=== PATIENT | female | born 1945 | race Hispanic/Latino ===

== ENCOUNTER 2022-04-26 19:40 | Observation (INO) | payer OTHER, MEDICARE ==
[~2022-04-26] VITALS: Ht 157.5 cm; Wt 124.7 kg
[2022-04-26 20:29] LABS: BASOPHILS % (AUTO) 0.3 % (0.0-5.0); EOSINOPHILS % (AUTO) 0.4 % (0.0-8.0); HEMATOCRIT 34.8 % (36-48); LYMPHOCYTES % (AUTO) 16.7 % (21.0-51.0); MEAN CORPUSCULAR HEMOGLOBIN 28.9 pg (27.0-33.0); MEAN CORPUSCULAR HGB CONC 32.5 g/dL (32.0-36.0); MONOCYTES % (AUTO) 6.6 % (3.0-13.0); NEUTROPHILS % (AUTO) 75.4 % (40.0-77.0); PLATELET COUNT (AUTO) 237 K/uL (130-400); RED BLOOD CELL COUNT(AUTO) 3.91 MIL/uL (4.00-5.50); RED CELL DISTRIBUTION WIDTH 13.4 % (11.0-15.5); WHITE BLOOD COUNT (AUTO) 6.8 K/uL (4.8-10.8)
[2022-04-26 20:39] LABS: CREATININE 1.2 mg/dL (0.5-1.5); POTASSIUM 3.8 mmol/L (3.5-5.1)
[2022-04-26 20:42] LABS: PROTHROMBIN TIME 10.9 SEC (9.6-11.6)
[2022-04-26 20:43] LABS: PARTIAL THROMBOPLASTIN TIME 27.3 SEC (26.3-35.5)
[2022-04-26 20:44] LABS: ALBUMIN 3.5 g/dL (3.5-5.0); TOTAL PROTEIN, SERUM 8.1 g/dL (6.0-8.3)
[2022-04-26] MEDS ORDERED: FUROSEMIDE 40MG VIAL ONE (20:50)
[2022-04-26] MEDS ORDERED: AMLODIPINE 5 MG TAB ONE (20:50)
[2022-04-26] MEDS ORDERED: LOSARTAN 50 MG TABLET ONE (20:50)
[2022-04-26 20:57] LABS: B-TYPE NATRIURETIC PEPTIDE 16 pg/mL (0-100)
[2022-04-26] MEDS ORDERED: ACETAMINOPHEN 325 MG TAB PO PRN (21:00)
[2022-04-26] MEDS: FUROSEMIDE 40MG VIAL IVP SCH (21:00)
[2022-04-26] MEDS: METOPROLOL TARTRATE 25 MG TAB PO SCH (21:00)
[2022-04-26] MEDS ORDERED: METOPROLOL TARTRATE 25 MG TAB PO SCH (21:00)
[2022-04-26] MEDS ORDERED: GUAIFENESIN-DM 200/20 MG 10 ML PO PRN (21:00)
[2022-04-26] MEDS ORDERED: HYDRALAZINE 20MG/ML VIAL IV PRN (21:30)
[2022-04-26 22:30] VITALS: BP 145/73
[2022-04-26] MEDS ORDERED: LOSA50TA64 PO (23:43)
[2022-04-26] MEDS ORDERED: FERR325T29 PO (23:43)
[2022-04-26] MEDS ORDERED: GLIP10TA9 PO (23:43)
[2022-04-26] MEDS ORDERED: TERB250T89 PO (23:43)
[2022-04-26] MEDS ORDERED: PSYL0.5245 PO (23:48)
[2022-04-26] MEDS ORDERED: AMLO-258 PO (23:50)
[2022-04-26] MEDS ORDERED: ROSU20TA31 PO (23:50)
[2022-04-26] MEDS ORDERED: PANT20TA18 PO (23:52)
[2022-04-26] MEDS ORDERED: LORA10TA7 PO (23:52)
[2022-04-26] MEDS ORDERED: FURO20TA4 PO (23:52)
[2022-04-26] MEDS ORDERED: PIOG45TA64 PO (23:52)
[2022-04-26] MEDS ORDERED: ASPI-1443 PO (23:55)
[2022-04-26] MEDS ORDERED: DOCU100T PO (23:55)
[2022-04-27] MEDS ORDERED: POTASSIUM CHLORIDE 20MEQ/100ML 100 ML IV PRN (02:00)
[2022-04-27] MEDS ORDERED: KCL 20 MEQ ERTAB PO PRN (02:00)
[2022-04-27] MEDS ORDERED: POTASSIUM CHLORIDE 10% ELIXIR 20 MEQ/15 ML UDCUP PO PRN (02:00)
[2022-04-27] MEDS ORDERED: LIDOCAINE HCL-MPF 1% 2ML VIAL IV PRN (02:00)
[2022-04-27 04:17] VITALS: BP 120/56
[2022-04-27 04:57] LABS: CREATININE 1.1 mg/dL (0.5-1.5); POTASSIUM 3.7 mmol/L (3.5-5.1)
[2022-04-27] MEDS: INSULIN HUMULIN R 100 UNIT/ML 3ML SQ SCH ×4 (06:48→21:00)
[2022-04-27 07:32] VITALS: BP 117/67
[2022-04-27] MEDS ORDERED: AMLODIPINE 5 MG TAB PO SCH ×2 (09:00)
[2022-04-27] MEDS ORDERED: ENOXAPARIN SODIUM 40 MG/0.4 ML SYRINGE SQ SCH (09:00)
[2022-04-27] MEDS ORDERED: ENOXAPARIN SODIUM 30 MG/0.3 ML SQ SCH (09:00)
[2022-04-27] MEDS ORDERED: IOHEXOL-350 75 ML VIAL IV ONE (09:10)
[2022-04-27] MEDS: METOPROLOL TARTRATE 25 MG TAB PO SCH ×2 (09:47→20:53)
[2022-04-27] MEDS: LOSARTAN 100 MG TABLET PO SCH (09:48)
[2022-04-27] MEDS: KCL 20 MEQ ERTAB PO SCH ×2 (09:48→20:53)
[2022-04-27] MEDS: FUROSEMIDE 40MG VIAL IVP SCH ×2 (09:49→20:53)
[2022-04-27] MEDS: ENOXAPARIN SODIUM 120 MG/0.8ML SQ SCH (12:29)
[2022-04-27 12:57] VITALS: BP 130/60
[2022-04-27 16:32] VITALS: BP 155/63
[2022-04-27 20:00] VITALS: BP 145/64
[2022-04-27] MEDS ORDERED: TERBINAFINE HCL PO SCH (21:00)
[2022-04-27] MEDS ORDERED: ATORVASTATIN 40 MG TABLET PO SCH (21:00)
[2022-04-28] VITALS: BP 123/60
[2022-04-28 04:00] VITALS: BP 118/44
[2022-04-28 05:22] LABS: HEMATOCRIT 36.2 % (36-48); MEAN CORPUSCULAR HEMOGLOBIN 28.7 pg (27.0-33.0); MEAN CORPUSCULAR HGB CONC 31.8 g/dL (32.0-36.0); MEAN CORPUSCULAR VOLUME 90.3 fL (79-99); RED BLOOD CELL COUNT(AUTO) 4.01 MIL/uL (4.00-5.50); RED CELL DISTRIBUTION WIDTH 13.5 % (11.0-15.5); WHITE BLOOD COUNT (AUTO) 6.4 K/uL (4.8-10.8)
[2022-04-28 05:48] LABS: CREATININE 1.2 mg/dL (0.5-1.5); POTASSIUM 4.1 mmol/L (3.5-5.1)
[2022-04-28] MEDS: INSULIN HUMULIN R 100 UNIT/ML 3ML SQ SCH ×2 (06:07→11:30)
[2022-04-28 08:00] VITALS: BP 117/57
[2022-04-28] MEDS ORDERED: GLIPIZIDE 5 MG TABLET PO SCH (08:00)
[2022-04-28] MEDS ORDERED: GLIPIZIDE PO SCH (08:00)
[2022-04-28] MEDS: LOSARTAN 100 MG TABLET PO SCH (08:47)
[2022-04-28] MEDS: METOPROLOL TARTRATE 25 MG TAB PO SCH (08:47)
[2022-04-28] MEDS: KCL 20 MEQ ERTAB PO SCH (08:47)
[2022-04-28] MEDS: ENOXAPARIN SODIUM 120 MG/0.8ML SQ SCH (08:48)
[2022-04-28] MEDS ORDERED: ASPIRIN 81 MG EC TAB PO SCH (09:00)
[2022-04-28] MEDS ORDERED: LORATADINE 10 MG TABLET PO SCH (09:00)
[2022-04-28] MEDS ORDERED: FUROSEMIDE 40 MG TABLET PO SCH (09:00)
[2022-04-28] MEDS ORDERED: PIOGLITAZONE 45MG TAB PO SCH (09:00)
[2022-04-28] MEDS ORDERED: FERROUS SULFATE PO SCH (09:00)
[2022-04-28] MEDS ORDERED: PANTOPRAZOLE 40 MG TAB DR PO SCH (09:00)
[2022-04-28] MEDS ORDERED: ENOXAPARIN SODIUM 120 MG/0.8ML SQ SCH (09:00)
[2022-04-28] MEDS ORDERED: FERROUS SULFATE 325 MG TABLET.DR PO SCH (09:00)
[2022-04-28] MEDS ORDERED: AMLODIPINE 5 MG TAB PO SCH (09:00)
[2022-04-28] MEDS ORDERED: NON-FORMULARY MEDICATION 1 EACH (Rosuvastatin Calcium 1 TAB) PO SCH (09:00)
[2022-04-28] MEDS ORDERED: NON-FORMULARY MEDICATION 1 EACH (Docusate Sodium 100 MG) PO SCH (09:00)
[2022-04-28] MEDS ORDERED: DOCUSATE SODIUM 100 MG CAP PO SCH (09:00)
[2022-04-28] MEDS ORDERED: NON-FORMULARY MEDICATION 1 EACH (Amlodipine Besylate 1 TAB) PO SCH (09:00)
[2022-04-28] MEDS ORDERED: FURO40TA5 PO (10:03)
[2022-04-28 11:54] VITALS: BP 121/47
== END 2022-04-28 14:55 | disposition home or self-care (01) ==
LOC: EDBD 19:40 → EDH 19:40 → EDHIP 20:41 → 4CH 22:49
PROVIDERS: ADMIT Internal Medicine Critical Care Medicine; ATTEND Internal Medicine Critical Care Medicine
DX: I16.0 Hypertensive urgency (principal); I11.0 Hypertensive heart disease with heart failure; I50.31 Acute diastolic (congestive) heart failure; J96.01 Acute respiratory failure with hypoxia; J81.0 Acute pulmonary edema; E11.9 Type 2 diabetes mellitus without complications; E66.01 Morbid (severe) obesity due to excess calories; K21.9 Gastro-esophageal reflux disease without esophagitis; E78.5 Hyperlipidemia, unspecified; G47.33 Obstructive sleep apnea (adult) (pediatric); Z79.899 Other long term (current) drug therapy; Z85.038 Personal history of other malignant neoplasm of large intestine; Z20.822 Contact with and (suspected) exposure to COVID-19; Z90.710 Acquired absence of both cervix and uterus; Z92.21 Personal history of antineoplastic chemotherapy
CPT/HCPCS: 99284; 83036; 84484; 80053; 83880 ×2; 85025; 85610; 85730; 87804 ×2; 36415 ×3; 93005; 96374; 96376; 96372 ×2; 80048 ×2; 85378; 82948 ×5; 87635; 71045; 71270; 93306; 93356; 93970; 83735; 85027; 94760 ×2; G0378 ×42; J1940 ×4; J1650 ×3; Q9967; G0379